=== PATIENT | female | born 1940 | race Caucasian/White ===

== ENCOUNTER 2017-02-12 05:04 | Emergency (ER) | payer MEDICARE, OTHER ==
[2017-02-12 06:00] LABS: ABSOLUTE EOSINOPHILS # (AUTO) 0.4 10^3/uL (0.0-0.6); ABSOLUTE LYMPHOCYTES (AUTO) 1.4 10^3/uL (0.5-4.7); ABSOLUTE MONOCYTES (AUTO) 0.5 10^3/uL (0.1-1.4); ABSOLUTE NEUT (AUTO) 3.3 10^3/uL (1.7-8.2); BASOPHILS % (AUTO) 0.8 % (0-2); EOSINOPHILS % (AUTO) 6.7 % (0-6); HEMATOCRIT 37.8 % (36.0-47.0); HEMOGLOBIN 12.5 g/dL (12.0-15.5); HGB HCT DIFFERENCE -0.3; MEAN CORPUSCULAR HEMOGLOBIN 31.2 pg (27.0-33.4); MEAN CORPUSCULAR HGB CONC 33.2 g/dL (32.0-36.0); MEAN CORPUSCULAR VOLUME 94 fl (80-97); MONOCYTES % (AUTO) 8.8 % (3-13); RED BLOOD COUNT 4.02 10^6/uL (3.72-5.28); RED CELL DISTRIBUTION WIDTH 13.7 % (11.5-14.0); SEGMENTED NEUTROPHILS % (AUTO) 58.7 % (42-78); WHITE BLOOD COUNT 5.6 10^3/uL (4.0-10.5)
[2017-02-12 06:14] LABS: ALANINE AMINOTRANSFERASE 31 U/L (9-52); ALBUMIN 3.9 g/dL (3.5-5.0); ALKALINE PHOSPHATASE 98 U/L (38-126); ANION GAP 13 (5-19); ASPARTATE AMINO TRANSFERASE 32 U/L (14-36); BILIRUBIN,DIRECT 0.1 mg/dL (0.0-0.4); BILIRUBIN,TOTAL 0.5 mg/dL (0.2-1.3); BLOOD UREA NITROGEN 24 mg/dL (7-20); CALCIUM 10.1 mg/dL (8.4-10.2); CARBON DIOXIDE 26 mmol/L (22-30); CHLORIDE 103 mmol/L (98-107); CREATININE RESULT 0.73 mg/dL (0.52-1.25); GLUCOSE 127 mg/dL (75-110); LIPASE 170.6 U/L (23-300); POTASSIUM 3.8 mmol/L (3.6-5.0); SODIUM 141.6 mmol/L (137-145); TOTAL PROTEIN 6.9 g/dL (6.3-8.2)
[2017-02-12 06:36] LABS: APPEARANCE,URINE SLIGHTLY-CLOUDY; BILIRUBIN,URINE NEGATIVE (NEGATIVE); GLUCOSE, URINE NEGATIVE (NEGATIVE); KETONES,URINE NEGATIVE (NEGATIVE); LEUKOCYTE ESTERASE,URINE LARGE (NEGATIVE); NITRITE,URINE NEGATIVE (NEGATIVE); PROTEIN,URINE NEGATIVE (NEGATIVE); URINE SPECIFIC GRAVITY 1.011; UROBILINOGEN,URINE NEGATIVE mg/dL (<2.0)
--- NOTE | 2017-02-12 06:38 | ER Document Report ---
ED General - General Chief Complaint: Abdominal Pain Stated Complaint: ABDOMINAL PAIN Mode of Arrival: Medic Information source: Patient Notes: 76 yr old female with hx of constipation presents with complaitns of abd pain. pt notes that it is in the lower abd. Pt denies any fevers or chills, denies any vomtiing, pt had mild nausea. Pts family notes after she had a bm movement here most of her pain has resolved. TRAVEL OUTSIDE OF THE [place] IN LAST 30 DAYS: No - HPI Onset: Just prior to arrival Onset/Duration: Sudden Quality of pain: Cramping Severity: Mild Pain Level: 1 Associated symptoms: Other Exacerbated by: Denies Relieved by: Denies Similar symptoms previously: Yes Recently seen / treated by doctor: Yes - Related Data Allergies/Adverse Reactions: clarithromycin [Clarithromycin] Allergy (Unknown, Verified 06/01/13 14:40) unsure of reaction clindamycin HCl [From Cleocin] Allergy (Unknown, Verified 06/01/13 14:40) pt states just can't take doxycycline monohydrate [From Vibramycin] Allergy (Unknown, Verified 06/01/13 14 :40) unsure of reaction Sulfa (Sulfonamide Antibiotics) Allergy (Unknown, Verified 05/07/11 16:47) brimonidine tartrate [From Alphagan] Allergy (Verified 01/16/13 11:31) Red eyes furosemide [From Lasix] Allergy (Verified 01/16/13 11:31) breaks down timolol [Timolol] Allergy (Verified 01/16/13 11:31) lowers heart rate erythromycin base [Erythromycin Base] Adverse Reaction (Severe, Verified 14:40) GI upset Penicillins Adverse Reaction (Severe, Verified 06/01/13 14:40) dry mouth,vomiting doxycycline [Doxycycline] Adverse Reaction (Intermediate, Verified 06/01/13 14: 40) Nausea Past Medical History - Social History Smoking Status: Former Smoker Cigarette use (# per day): No Chew tobacco use (# tins/day): No Smoking Education Provided: No Frequency of alcohol use: None Drug Abuse: None Family History: Reviewed & Not Pertinent - Past Medical History Cardiac Medical History: Reports: Hx Heart Attack - unsure when, Hx Hypertension - age 63 Denies: Hx Coronary Artery Disease Pulmonary Medical History: Reports: Hx Bronchitis, Hx Pneumonia - 15 yrs ago Denies: Hx Asthma, Hx COPD Neurological Medical History: Denies: Hx Cerebrovascular Accident, Hx Seizures GI Medical History: Denies: Hx Hepatitis, Hx Hiatal Hernia, Hx Ulcer Musculoskeltal Medical History: Denies Hx Arthritis Psychiatric Medical History: Reports: Hx Depression Infectious Medical History: Denies: Hx Hepatitis Past Surgical History: Reports: Hx Breast Surgery - cyst removed benign, Hx Cholecystectomy, Hx Hysterectomy, Hx Orthopedic Surgery - right ankle and right hip. Denies: Hx Mastectomy, Hx Open Heart Surgery, Hx Pacemaker - Immunizations Hx Diphtheria, Pertussis, Tetanus Vaccination: No - ~8yrs ago Hx Pneumococcal Vaccination: 10/25/09 Review of Systems - Review of Systems Notes: REVIEW OF SYSTEMS: CONSTITUTIONAL : Denies fever, chills, or sweats. Denies recent illness. EENT: Denies eye, ear, throat, or mouth pain or symptoms. Denies nasal or sinus congestion or discharge. Denies throat, tongue, or mouth swelling or difficulty swallowing. CARDIOVASCULAR: Denies chest pain. Denies palpitations or racing or irregular heart beat. Denies ankle edema. RESPIRATORY: Denies cough, cold, or chest congestion. Denies shortness of breath, difficulty breathing, or wheezing. GASTROINTESTINAL: abd pain, constipation GENITOURINARY: Denies difficulty urinating, painful urination, burning, frequency, blood in urine, or discharge. FEMALE GENITOURINARY: Denies vaginal bleeding, heavy or abnormal periods, irregular periods. Denies vaginal discharge or odor. MUSCULOSKELETAL: Denies back or neck pain or stiffness. Denies joint pain or swelling. SKIN: Denies rash, lesions or sores. HEMATOLOGIC : Denies easy bruising or bleeding. LYMPHATIC: Denies swollen, enlarged glands. NEUROLOGICAL: Denies confusion or altered mental status. Denies passing out or loss of consciousness. Denies dizziness or lightheadedness. Denies headache. Denies weakness or paralysis or loss of use of either side. Denies problems with gait or speech. Denies sensory loss, numbness, or tingling. Denies seizures. PSYCHIATRIC: Denies anxiety or stress. Denies depression, suicidal ideation, or homicidal ideation. ALL OTHER SYSTEMS REVIEWED AND NEGATIVE. Dictation was performed using [employer] voice recognition software PHYSICAL EXAMINATION: GENERAL: Well-appearing, well-nourished and in no acute distress. HEAD: Atraumatic, normocephalic. EYES: Pupils equal round and reactive to light, extraocular movements intact, conjunctiva are normal. ENT: Nares patent, oropharynx clear without exudates. Moist mucous membranes. NECK: Normal range of motion, supple without lymphadenopathy LUNGS: Breath sounds clear to auscultation bilaterally and equal. No wheezes rales or rhonchi. HEART: Regular rate and rhythm without murmurs ABDOMEN: Soft, nontender, nondistended abdomen. No guarding, no rebound. No masses appreciated. Female : deferred Musculoskeletal: Normal range of motion, no pitting or edema. No cyanosis. NEUROLOGICAL: Cranial nerves grossly intact. Normal speech, normal gait. Normal sensory, motor exams PSYCH: Normal mood, normal affect. SKIN: Warm, Dry, normal turgor, no rashes or lesions noted. Course - Re-evaluation Re-evalutation: 02/12/17 06:38 Physical examination noted no significant abnormality, patient looks well patient has improved after bowel movement, CBC CMP no no significant abnormalities. Acute abdominal series and urinalysis are still pending at this time I do not expect any life-threatening issues 02/12/17 08:06 Acute abdominal series notes no significant abnormality, patient is drinking with no difficulty. She does have leukoesterases noted, I will treat her for a UTI otherwise she is well-appearing in no distress After performing a Medical Screening Examination, I estimate there is LOW risk for ACUTE APPENDICITIS, BOWEL OBSTRUCTION, ACUTE CHOLECYSTITIS, PERFORATED DIVERTICULITIS, INCARCERATED HERNIA, PANCREATITIS, PELVIC INFLAMMATORY DISEASE, PERFORATED ULCER, ECTOPIC , or TUBO-OVARIAN ABSCESS, thus I consider the discharge disposition reasonable. Also, there is no evidence or peritonitis , sepsis, or toxicity. I have reevaluated this patient multiple times and no significant life threatening changes are noted. The patient and I have discussed the diagnosis and risks, and we agree with discharging home with close follow-up with the understanding that symptoms and presentations can change. We also discussed returning to the Emergency Department immediately if new or worsening symptoms occur. We have discussed the symptoms which are most concerning (e.g., bloody stool, fever, changing or worsening pain, vomiting) that necessitate immediate return. - Laboratory Result Diagrams: 02/12/17 05:34 02/12/17 05:34 Laboratory results interpreted by me: 02/12/17 02/12/17 02/12/17 05:34 05:34 06:04 Eosinophils % 6.7 H BUN 24 H Glucose 127 H Ur Leukocyte Esterase LARGE H - Diagnostic Test Radiology reviewed: Image reviewed, Reports reviewed Discharge - Discharge Clinical Impression: Abdominal pain Qualifiers: Abdominal location: generalized Qualified Code(s): R10.84 - Generalized abdominal pain UTI (urinary tract infection) Qualifiers: Urinary tract infection type: acute cystitis Hematuria presence: without hematuria Qualified Code(s): N30.00 - Acute cystitis without hematuria Constipation Qualifiers: Constipation type: unspecified constipation type Qualified Code(s): K59.00 - Constipation, unspecified Condition: Stable Disposition: HOME, SELF-CARE Instructions: Abdominal Pain ([facility]), Urinary Tract Infection ([facility]) Prescriptions: Cephalexin Monohydrate [Keflex 500 mg Capsule] 500 mg PO BID #20 capsule Referrals: ANTHONY AGUILAR MD [Primary Care Provider] - Follow up tomorrow
[2017-02-12 08:19] VITALS: BP 136/53
== END 2017-02-12 08:19 | disposition home or self-care (01) ==
LOC: ER 05:04
DX: R10.84 Generalized abdominal pain (principal); N30.00 Acute cystitis without hematuria; K59.00 Constipation, unspecified; R11.0 Nausea; I10 Essential (primary) hypertension; Z88.3 Allergy status to other anti-infective agents; Z88.2 Allergy status to sulfonamides; Z88.0 Allergy status to penicillin; I25.2 Old myocardial infarction; Z90.49 Acquired absence of other specified parts of digestive tract; Z90.710 Acquired absence of both cervix and uterus
CPT/HCPCS: 36415; 74022; 80053; 81001; 83690; 85025; 99284

== ENCOUNTER 2018-01-07 10:04 | Emergency (ER) | payer MEDICARE, OTHER ==
--- NOTE | 2018-01-07 10:30 | ER Document Report ---
HPI - HPI Pain Level: 1 Notes: Patient is a 77-year-old female who presents to the ED complaining of right foot and right ankle pain status post injury yesterday afternoon. Patient states that she stepped out of her car and slipped on a "mud hole." Patient states that she did continue to run her errands and has been ambulatory since then, but does have pain associated and is limping. Patient did have a postop shoe at home which she has been using as well. Patient states that the pain does not radiate. She has noticed some swelling into her dorsal foot. Patient states that she has had a previous surgery to that foot in the past. Patient states that she did not hurt any other part of her body is otherwise feeling well. Denies any headache, fever, head injury, LOC, neck pain, URI, sore throat , chest pain, palpitations, syncope, cough, shortness of breath, wheeze, dyspnea , abdominal pain, nausea/vomiting/diarrhea, urinary retention, dysuria, hematuria, loss of control of bowel or bladder, numbness/tingling, saddle anesthesia, muscle paralysis/weakness, or rash. - ROS Systems Reviewed and Negative: Yes All other systems reviewed and negative - REPRODUCTIVE Reproductive: DENIES: : Past Medical History - Social History Smoking Status: Never Smoker Family History: Reviewed & Not Pertinent - Past Medical History Cardiac Medical History: Reports: Hx Heart Attack - unsure when, Hx Hypertension - age 63 Denies: Hx Coronary Artery Disease Pulmonary Medical History: Reports: Hx Bronchitis, Hx Pneumonia - 15 yrs ago Denies: Hx Asthma, Hx COPD Neurological Medical History: Denies: Hx Cerebrovascular Accident, Hx Seizures GI Medical History: Denies: Hx Hepatitis, Hx Hiatal Hernia, Hx Ulcer Musculoskeltal Medical History: Denies Hx Arthritis Psychiatric Medical History: Reports: Hx Depression Infectious Medical History: Denies: Hx Hepatitis Past Surgical History: Reports: Hx Breast Surgery - cyst removed benign, Hx Cholecystectomy, Hx Hysterectomy, Hx Orthopedic Surgery - right ankle and right hip. Denies: Hx Mastectomy, Hx Open Heart Surgery, Hx Pacemaker - Immunizations Hx Diphtheria, Pertussis, Tetanus Vaccination: No - ~8yrs ago Hx Pneumococcal Vaccination: 10/25/09 Vertical Provider Document - CONSTITUTIONAL Agree With Documented VS: Yes Notes: PHYSICAL EXAMINATION: GENERAL: Well-appearing, well-nourished and in no acute distress. A&Ox4. Answers questions appropriately. LUNGS: Breath sounds clear to auscultation bilaterally and equal. No wheezes rales or rhonchi. HEART: Regular rate and rhythm without murmurs, rubs, gallops. Musculoskeletal: Rt ankle/foot: LROM to passive/active. Strength 4+/5. No deficits noted. + swelling to the dorsal foot noted. + tenderness to the ankle b/l and to the distal foot to palp. N/V intact distal. Achilles intact. Back: FROM to passive/active. Strength 5+/5. No vertebral point tenderness, stepoffs, or deformities. No other bony tenderness, erythema, swelling, or ecchymosis. SLR negative b/l. No foot drop Extremities: No cyanosis, clubbing, or edema b/l. Peripheral pulses 2+. Capillary refill less than 2 seconds. NEUROLOGICAL: Normal speech, ataxic gait. Normal sensory, motor exams. Reflexes 2+ b/l. PSYCH: Normal mood, normal affect. SKIN: Warm, Dry, normal turgor, no rashes or lesions noted. - INFECTION CONTROL TRAVEL OUTSIDE OF THE [place] IN LAST 30 DAYS: No - RESPIRATORY O2 Sat by Pulse Oximetry: 99 Course - Re-evaluation Re-evalutation: 01/07/18 12:14 Patient is an afebrile, well-hydrated, 77-year-old female who presents to the ED with right ankle and foot pain, suspect sprain versus strain. Vitals are stable. PE is otherwise unremarkable for any neurovascular compromise, obvious tendon/ligament rupture, obvious fracture/dislocation, septic joint. X-ray was unremarkable for any acute pathology of the ankle and the foot. Ankle stirrup placed. Pt declined crutches as she has a walker at home. Declined any medicine for pain today. Recommend conservative measures for symptoms. Recheck with your PCM in 3-5 days. Consider consult orthopedics/physical therapy. Return to the ED with any worsening/concerning symptoms otherwise as reviewed discharge. Patient is in agreement. - Vital Signs Vital signs: Temp Pulse Resp BP Pulse Ox 97.9 F 65 16 152/62 H 99 01/07/18 10:09 01/07/18 10:09 01/07/18 10:09 01/07/18 10:01/07/18 10:09 Discharge - Discharge Clinical Impression: Right foot pain Right ankle pain Qualifiers: Chronicity: acute Qualified Code(s): M25.571 - Pain in right ankle and joints of right foot Condition: Stable Disposition: HOME, SELF-CARE Instructions: Ice & Elevation ([facility]), Ankle Stirrup Splint ([facility]) Additional Instructions: Rest, Ice, Compression, Elevation Use crutches/splint/sling as directed Tylenol/ibuprofen as needed Light stretches daily Strength exercises as able Moist heat and massage may help F/u with your PCP in 3-5 days for a recheck Consider consult(s) with Orthopedics/physical therapy for ongoing/worsening symptoms Return to the ED with any worsening symptoms and/or development of fever, headache, chest pain, palpitations, syncope, shortness of breath, trouble breathing, abdominal pain, n/v/d, muscle weakness/paralysis, numbness/tingling, swelling, redness, or other worsening symptoms that are concerning to you. Forms: Elevated Blood Pressure Referrals: [facility] [Provider Group] - Follow up as needed
--- NOTE | 2018-01-07 12:03 | RADIOLOGY REPORT (SQ) ---
EXAM DESCRIPTION: FOOT RIGHT COMPLETE COMPLETED DATE/TIME: 01/07/2018 11:33 am REASON FOR STUDY: ankle/foot pain s/p injury COMPARISON: None. NUMBER OF VIEWS: Three views. TECHNIQUE: AP, lateral and oblique radiographic images acquired of the right foot. LIMITATIONS: Please note: There is a demographics mismatch warning FINDINGS: MINERALIZATION: Osteopenia. BONES: No acute fracture or dislocation. No worrisome bone lesions. JOINTS: No effusions. SOFT TISSUES: No soft tissue swelling. No foreign body. OTHER: Hardware is present in the distal fibula and the medial malleolus. IMPRESSION: NEGATIVE STUDY OF THE RIGHT FOOT. NO RADIOGRAPHIC EVIDENCE OF ACUTE INJURY. TECHNICAL DOCUMENTATION: JOB ID: [id number] [employer]- All Rights Reserved Reading location - IP/workstation name: [email or web address]
--- NOTE | 2018-01-07 12:12 | RADIOLOGY REPORT (SQ) ---
EXAM DESCRIPTION: ANKLE RIGHT COMPLETE COMPLETED DATE/TIME: 01/07/2018 11:33 am REASON FOR STUDY: ankle/foot pain s/p injury COMPARISON: 02/14/2007 NUMBER OF VIEWS: Three views. TECHNIQUE: AP, lateral, and oblique radiographic images acquired of the right ankle. LIMITATIONS: Please note: There is a demographics mismatch warning. FINDINGS: MINERALIZATION: Normal. BONES: No acute fracture or dislocation. There is along compression plate on the distal fibula and 2 cannulated screws through the medial malleolus. JOINTS: No effusions. SOFT TISSUES: No soft tissue swelling. No foreign body. OTHER: No other significant finding. IMPRESSION: NEGATIVE STUDY OF THE RIGHT ANKLE. NO RADIOGRAPHIC EVIDENCE OF ACUTE INJURY. TECHNICAL DOCUMENTATION: JOB ID: [id number] [employer]- All Rights Reserved Reading location - IP/workstation name: [email or web address]
[2018-01-07 12:35] VITALS: BP 140/48
== END 2018-01-07 12:42 | disposition home or self-care (01) ==
LOC: ER 10:04
DX: M79.671 Pain in right foot (principal); M25.571 Pain in right ankle and joints of right foot; W01.0XXA Fall on same level from slipping, tripping and stumbling without subsequent striking against object, initial encounter; M79.89 Other specified soft tissue disorders; Z98.890 Other specified postprocedural states; I25.2 Old myocardial infarction; I10 Essential (primary) hypertension; Z90.710 Acquired absence of both cervix and uterus; Z90.49 Acquired absence of other specified parts of digestive tract
CPT/HCPCS: 99283; 73610; 73630; L1902

== ENCOUNTER 2018-03-07 18:52 | Emergency (ER) | payer MEDICARE, OTHER ==
[2018-03-07] MEDS ORDERED: ONDANSETRON HCL INJ/PF 4 MG/2 ML SDV IV ONE (20:08)
[2018-03-07] MEDS ORDERED: NORMAL SALINE 1000 ML 1,000 ML IV ONE (20:22)
--- NOTE | 2018-03-07 20:27 | ER Document Report ---
ED General - General Chief Complaint: Nausea Stated Complaint: ABDOMINAL PAIN Time Seen by Provider: 03/07/18 19:37 Notes: Patient is a 78 year old female with medical history as recorded with a surgical history of a cholecystectomy and a hysterectomy who presents with 2 episodes of nausea and vomiting today. The patient reports that she attempted to eat some chicken and pastry tonight for dinner but immediately vomited after eating. She notes that she has been able to tolerate some fluids since that time without difficulty. At time of presentation she denies any ongoing abdominal pain, nausea and her main complaint is chronic right knee pain. She states that this was not the reason she called EMS but given that she no longer has any symptoms for which she originally contacted them she would prefer that her right knee be addressed while she is here in the emergency department. She states that she fell approximately 1 month ago sustaining bruising and swelling to the right knee. She states that she saw her doctor and had x-rays of the area and was informed that there were no fractures or other obvious injuries. She is scheduled to follow-up with an orthopedic surgeon regarding this ongoing pain. She does note that she continues to walk on the area but that there is an associated dull, constant, throbbing pain. TRAVEL OUTSIDE OF THE [place] IN LAST 30 DAYS: No - Related Data Allergies/Adverse Reactions: clarithromycin [Clarithromycin] Allergy (Unknown, Verified 01/07/18 10:06) unsure of reaction clindamycin HCl [From Cleocin] Allergy (Unknown, Verified 01/07/18 10:06) pt states just can't take doxycycline monohydrate [From Vibramycin] Allergy (Unknown, Verified 01/07/18 10 :06) unsure of reaction Sulfa (Sulfonamide Antibiotics) Allergy (Unknown, Verified 01/07/18 10:06) brimonidine tartrate [From Alphagan] Allergy (Verified 01/07/18 10:06) Red eyes furosemide [From Lasix] Allergy (Verified 01/07/18 10:06) breaks down NSAIDS (Non-Steroidal Anti-Inflamma Allergy (Verified 01/07/18 10:06) nystatin Allergy (Verified 01/07/18 10:06) timolol [Timolol] Allergy (Verified 01/07/18 10:06) lowers heart rate trimethoprim Allergy (Verified 01/07/18 10:06) erythromycin base [Erythromycin Base] Adverse Reaction (Severe, Verified 10:06) GI upset Penicillins Adverse Reaction (Severe, Verified 01/07/18 10:06) dry mouth,vomiting doxycycline [Doxycycline] Adverse Reaction (Intermediate, Verified 01/07/18 10: 06) Nausea Past Medical History - General Information source: Patient, Relative - Social History Smoking Status: Never Smoker Chew tobacco use (# tins/day): No Frequency of alcohol use: None Drug Abuse: None Lives with: Alone Family History: Reviewed & Not Pertinent Patient has suicidal ideation: No Patient has homicidal ideation: No - Past Medical History Cardiac Medical History: Reports: Hx Heart Attack - unsure when, Hx Hypercholesterolemia, Hx Hypertension - age 63 Denies: Hx Coronary Artery Disease Pulmonary Medical History: Reports: Hx Bronchitis, Hx Pneumonia - 15 yrs ago Denies: Hx Asthma, Hx COPD Neurological Medical History: Denies: Hx Cerebrovascular Accident, Hx Seizures Renal/ Medical History: Denies: Hx Peritoneal Dialysis GI Medical History: Denies: Hx Hepatitis, Hx Hiatal Hernia, Hx Ulcer Musculoskeltal Medical History: Denies Hx Arthritis Psychiatric Medical History: Reports: Hx Depression Infectious Medical History: Denies: Hx Hepatitis Past Surgical History: Reports: Hx Appendectomy, Hx Breast Surgery - cyst removed benign, Hx Cholecystectomy, Hx Hysterectomy, Hx Orthopedic Surgery - right ankle and right hip. Denies: Hx Mastectomy, Hx Open Heart Surgery, Hx Pacemaker - Immunizations Hx Diphtheria, Pertussis, Tetanus Vaccination: No - ~8yrs ago Hx Pneumococcal Vaccination: 10/25/09 Review of Systems - Review of Systems Notes: Constitutional: Negative for fever. HENT: Negative for sore throat. Eyes: Negative for visual changes. Cardiovascular: Negative for chest pain. Respiratory: Negative for shortness of breath. Gastrointestinal: Positive for abdominal pain and vomiting now resolved Genitourinary: Negative for dysuria. Musculoskeletal: Positive for right knee pain Skin: Negative for rash. Neurological: Negative for headaches, weakness or numbness. 10 point ROS negative except as marked above and in HPI. Physical Exam - Vital signs Vitals: Temp Pulse Resp BP Pulse Ox 97.7 F 64 18 134/48 H 98 03/07/18 19:06 03/07/18 19:06 03/07/18 19:06 03/07/18 19:06 03/07/18 19:06 Interpretation: Normal Notes: PHYSICAL EXAMINATION: GENERAL: Well-appearing, well-nourished and in no acute distress. HEAD: Atraumatic, normocephalic. EYES: Pupils equal round and reactive to light, extraocular movements intact, sclera anicteric, conjunctiva are normal. ENT: nares patent, oropharynx clear without exudates. Moist mucous membranes. NECK: Normal range of motion, supple without lymphadenopathy LUNGS: Breath sounds clear to auscultation bilaterally and equal. No wheezes rales or rhonchi. HEART: Regular rate and rhythm without murmurs ABDOMEN: Soft, nontender, normoactive bowel sounds. No guarding, no rebound. No masses appreciated. EXTREMITIES: Normal range of motion, mild swelling noted to the right knee. Trace ecchymosis over the medial aspect of the knee. No cyanosis. NEUROLOGICAL: No focal neurological deficits. Moves all extremities spontaneously and on command. PSYCH: Normal mood, normal affect. SKIN: Warm, Dry, normal turgor, no rashes or lesions noted. Course - Re-evaluation Re-evalutation: 03/07/18 20:24 Patient presents with generalized abdominal pain and vomiting on 2 separate occasions today although currently she is abdominal pain-free without any further nausea or vomiting. Abdominal exam without any localized tenderness, rebound or guarding. Will obtain laboratory assessment and then reassess the patient. If this is unremarkable plan for discharge home with return precautions palpitations patient is also complaining of chronic right knee pain that has been present for the past 1 month is not to receive her ER visit today. There is some mild swelling to the right knee but she is able to perform range of motion. X-rays without any acute fracture dislocation. I have encouraged outpatient follow-up regarding this issue. 03/07/18 22:24 Labs do show an apparent urinary tract infection which would account for the patient's nausea and vomiting. Repeat abdominal exam does not show any abdominal tenderness. The patient has tolerated oral intake without difficulty. She is requesting to go home. She was started on cephalexin for the next 5 days. At this time will discharge with return precautions and follow -up recommendations. Verbal discharge instructions given a the bedside and opportunity for questions given. Medication warnings reviewed. Patient is in agreement with this plan and has verbalized understanding of return precautions and the need for primary care follow-up in the next 24-72 hours. - Vital Signs Vital signs: Temp Pulse Resp BP Pulse Ox 98 F 64 18 149/63 H 97 03/07/18 23:03 03/07/18 23:03 03/07/18 23:03 03/07/18 23:03 03/07/18 23:03 - Laboratory Result Diagrams: 03/07/18 20:40 03/07/18 20:40 Laboratory results interpreted by me: 03/07/18 03/07/18 20:40 21:20 Potassium 3.5 L Glucose 128 H Ur Leukocyte Esterase LARGE H Discharge - Discharge Clinical Impression: Chronic pain of right knee Nausea and vomiting Qualifiers: Vomiting type: unspecified Vomiting Intractability: non-intractable Qualified Code(s): R11.2 - Nausea with vomiting, unspecified Urinary tract infection Qualifiers: Urinary tract infection type: acute cystitis Hematuria presence: without hematuria Qualified Code(s): N30.00 - Acute cystitis without hematuria Condition: Stable Disposition: HOME, SELF-CARE Additional Instructions: Your urine shows findings consistent with a urinary tract infection. Please take all the antibiotics as directed even if your symptoms have improved. Please follow-up with your primary care physician as needed. Return to emergency room if you develop fever >101F, persistent vomiting, become lethargic , have severe pain in your sides, or any other symptoms that are concerning to you. Prescriptions: Cephalexin Monohydrate [Keflex 500 mg Capsule] 500 mg PO Q6H 5 Days capsule Referrals: ANHTONY AGUILAR MD [Primary Care Provider] - Follow up tomorrow
--- NOTE | 2018-03-07 20:35 | RADIOLOGY REPORT (SQ) ---
EXAM DESCRIPTION: KNEE RIGHT 4 VIEWS COMPLETED DATE/TIME: 03/07/2018 7:42 pm REASON FOR STUDY: fall COMPARISON: None. NUMBER OF VIEWS: Four views right knee. LIMITATIONS: None. 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 Osteopenic. No fracture or wo rrisome bone lesion. Small joint effusion is likely. OTHER: No other significant finding. IMPRESSION: No fracture. Findings as above. TECHNICAL DOCUMENTATION: JOB ID: [id number] Reading location - IP/workstation name: [email or web address]
[2018-03-07 20:51] LABS: ABSOLUTE EOSINOPHILS # (AUTO) 0.3 10^3/uL (0.0-0.6); ABSOLUTE LYMPHOCYTES (AUTO) 1.3 10^3/uL (0.5-4.7); ABSOLUTE MONOCYTES (AUTO) 0.6 10^3/uL (0.1-1.4); ABSOLUTE NEUT (AUTO) 3.4 10^3/uL (1.7-8.2); BASOPHILS % (AUTO) 0.4 % (0-2); EOSINOPHILS % (AUTO) 4.9 % (0-6); HEMATOCRIT 40.2 % (36.0-47.0); HEMOGLOBIN 13.5 g/dL (12.0-15.5); MEAN CORPUSCULAR HEMOGLOBIN 31.1 pg (27.0-33.4); MEAN CORPUSCULAR HGB CONC 33.4 g/dL (32.0-36.0); MEAN CORPUSCULAR VOLUME 93 fl (80-97); MONOCYTES % (AUTO) 11.5 % (3-13); PLATELET COUNT 225 10^3/uL (150-450); RED BLOOD COUNT 4.33 10^6/uL (3.72-5.28); RED CELL DISTRIBUTION WIDTH 13.7 % (11.5-14.0); SEGMENTED NEUTROPHILS % (AUTO) 60.2 % (42-78); TOTAL CELLS COUNTED % (AUTO) 100 %; WHITE BLOOD COUNT 5.6 10^3/uL (4.0-10.5)
[2018-03-07 21:15] LABS: ALANINE AMINOTRANSFERASE 25 U/L (9-52); ALKALINE PHOSPHATASE 104 U/L (38-126); ANION GAP 14 (5-19); ASPARTATE AMINO TRANSFERASE 31 U/L (14-36); BILIRUBIN,DIRECT 0.3 mg/dL (0.0-0.4); BILIRUBIN,TOTAL 0.3 mg/dL (0.2-1.3); BLOOD UREA NITROGEN 16 mg/dL (7-20); CALCIUM 9.6 mg/dL (8.4-10.2); CARBON DIOXIDE 29 mmol/L (22-30); CHLORIDE 101 mmol/L (98-107); GLUCOSE 128 mg/dL (75-110); LIPASE 129.4 U/L (23-300); POTASSIUM 3.5 mmol/L (3.6-5.0); SODIUM 144.1 mmol/L (137-145); TOTAL PROTEIN 7.3 g/dL (6.3-8.2)
[2018-03-07 21:45] LABS: APPEARANCE,URINE CLEAR; BILIRUBIN,URINE NEGATIVE (NEGATIVE); COLOR,URINE STRAW; GLUCOSE, URINE NEGATIVE (NEGATIVE); KETONES,URINE NEGATIVE (NEGATIVE); LEUKOCYTE ESTERASE,URINE LARGE (NEGATIVE); NITRITE,URINE NEGATIVE (NEGATIVE); PROTEIN,URINE NEGATIVE (NEGATIVE); URINE SPECIFIC GRAVITY 1.005; UROBILINOGEN,URINE NEGATIVE mg/dL (<2.0)
[2018-03-07 23:04] VITALS: BP 149/63
== END 2018-03-07 23:04 | disposition home or self-care (01) ==
LOC: ER 18:52
DX: N30.00 Acute cystitis without hematuria (principal); R11.2 Nausea with vomiting, unspecified; R10.84 Generalized abdominal pain; G89.29 Other chronic pain; M25.561 Pain in right knee; Z87.828 Personal history of other (healed) physical injury and trauma; I10 Essential (primary) hypertension; I25.2 Old myocardial infarction; Z88.1 Allergy status to other antibiotic agents; Z90.49 Acquired absence of other specified parts of digestive tract; Z90.710 Acquired absence of both cervix and uterus; Z88.2 Allergy status to sulfonamides; Z88.8 Allergy status to other drugs, medicaments and biological substances
CPT/HCPCS: 99284; 36415; 87086; 83690; 85025; 87088; 80053; 81001; 73564; J2405; J7030

== ENCOUNTER 2018-06-27 14:47 | Emergency (ER) | payer MEDICARE, OTHER ==
--- NOTE | 2018-06-27 15:17 | ER Document Report ---
ED General - General Chief Complaint: Swelling of Tongue Stated Complaint: TOUNGUE SWELLING Time Seen by Provider: 06/27/18 15:14 TRAVEL OUTSIDE OF THE [place] IN LAST 30 DAYS: No - HPI Patient complains to provider of: tongue swelling Onset: Other - This is a 78-year-old female presents for evaluation of unilateral tongue swelling which began today while she was sitting watching television. She has never had any reaction like this in the past, she has had allergic reactions to antibiotics. There was no prodrome no preceding event. She does take lisinopril. - Related Data Allergies/Adverse Reactions: clarithromycin [Clarithromycin] Allergy (Unknown, Verified 06/27/18 15:14) unsure of reaction clindamycin HCl [From Cleocin] Allergy (Unknown, Verified 06/27/18 15:14) pt states just can't take doxycycline monohydrate [From Vibramycin] Allergy (Unknown, Verified 06/27/18 15 :14) unsure of reaction Sulfa (Sulfonamide Antibiotics) Allergy (Unknown, Verified 06/27/18 15:14) brimonidine tartrate [From Alphagan] Allergy (Verified 06/27/18 15:14) Red eyes furosemide [From Lasix] Allergy (Verified 06/27/18 15:14) breaks down NSAIDS (Non-Steroidal Anti-Inflamma Allergy (Verified 06/27/18 15:14) nystatin Allergy (Verified 06/27/18 15:14) timolol [Timolol] Allergy (Verified 06/27/18 15:14) lowers heart rate trimethoprim Allergy (Verified 06/27/18 15:14) erythromycin base [Erythromycin Base] Adverse Reaction (Severe, Verified 15:14) GI upset Penicillins Adverse Reaction (Severe, Verified 06/27/18 15:14) dry mouth,vomiting doxycycline [Doxycycline] Adverse Reaction (Intermediate, Verified 06/27/18 15: 14) Nausea Past Medical History - General Information source: Patient - Social History Smoking Status: Current Every Day Smoker Family History: Reviewed & Not Pertinent - Past Medical History Cardiac Medical History: Reports: Hx Heart Attack - unsure when, Hx Hypercholesterolemia, Hx Hypertension - age 63 Denies: Hx Coronary Artery Disease Pulmonary Medical History: Reports: Hx Bronchitis, Hx Pneumonia - 15 yrs ago Denies: Hx Asthma, Hx COPD Neurological Medical History: Denies: Hx Cerebrovascular Accident, Hx Seizures Renal/ Medical History: Denies: Hx Peritoneal Dialysis GI Medical History: Denies: Hx Hepatitis, Hx Hiatal Hernia, Hx Ulcer Musculoskeletal Medical History: Denies Hx Arthritis Psychiatric Medical History: Reports: Hx Depression Infectious Medical History: Denies: Hx Hepatitis Past Surgical History: Reports: Hx Appendectomy, Hx Breast Surgery - cyst removed benign, Hx Cholecystectomy, Hx Hysterectomy, Hx Orthopedic Surgery - right ankle and right hip. Denies: Hx Mastectomy, Hx Open Heart Surgery, Hx Pacemaker - Immunizations Hx Diphtheria, Pertussis, Tetanus Vaccination: No - ~8yrs ago Hx Pneumococcal Vaccination: 10/25/09 Review of Systems - Review of Systems -: Yes All other systems reviewed and negative Physical Exam - Vital signs Vitals: Resp BP Pulse Ox 25 H 146/54 H 99 06/27/18 15:10 06/27/18 15:10 06/27/18 15:10 - General General appearance: Appears well In distress: None - HEENT Head: Normocephalic Eyes: Normal Conjunctiva: Normal Cornea: Normal Extraocular movements intact: Yes Eyelashes: Normal Pupils: PERRL - Respiratory Respiratory status: No respiratory distress Chest status: Nontender Breath sounds: Normal Chest palpation: Normal - Cardiovascular Rhythm: Regular Heart sounds: Normal auscultation Murmur: No - Abdominal Inspection: Normal Distension: No distension Tenderness: Nontender - Back Back: Normal - Extremities General upper extremity: Normal inspection, Nontender, Normal strength, Normal temperature General lower extremity: Normal inspection, Nontender, Normal strength, Normal temperature - Neurological Neuro grossly intact: Yes Cognition: Normal Orientation: AAOx4 Rolf Coma Scale Eye Opening: Spontaneous [place] Coma Scale Verbal: Oriented Rolf Coma Scale Motor: Obeys Commands Rolf Coma Scale Total: 15 Speech: Normal Cranial nerves: Normal Motor strength normal: LUE, RUE, LLE, RLE - Psychological Associated symptoms: Normal affect Course - Re-evaluation Re-evalutation: 06/27/18 18:45 78-year-old female that presents for evaluation of unilateral tongue swelling in the setting of having been on lisinopril previously. She does demonstrate what appears to be potential swelling consistent with angioedema or possibly an injury to the tongue having abated. She does have 2 partial plates, they may be irritating her tongue along the lateral aspect. Given that there is a concern that this is factory representative of angioedema will plan for reassessment frequently. Initial reassessment for 90 minutes every 15 minutes patient does not demonstrate any progression and swelling of the tongue. For the next 90 minutes assessed the patient every 20 minutes for any progression of tongue swelling, the tongue swelling improved steadily without complete resolution. The patient had no sense of stridor, no wheezing, no difficulty breathing chest pain shortness of breath or other symptoms. Following this observation. The patient is deemed appropriate for discharge home. Patient to be discharged home with instructions to stop taking lisinopril. She has been given a prescription for hydrochlorothiazide as it was a combination medication for her. Given strict return precautions related any worsening swelling. - Vital Signs Vital signs: Temp Pulse Resp BP Pulse Ox 17 129/64 H 98 06/27/18 18:01 06/27/18 18:01 06/27/18 18:01 - Laboratory Result Diagrams: 06/27/18 15:04 06/27/18 15:04 Laboratory results interpreted by me: 06/27/18 06/27/18 15:04 15:04 RDW 14.1 H Glucose 132 H Discharge - Discharge Clinical Impression: Tongue swelling Condition: Good Disposition: HOME, SELF-CARE Instructions: Angioedema ([facility]) Additional Instructions: You were seen today in the emergency department for the swelling in your tongue. It is likely that this is a result of the medicine you are taking called lisinopril. Do not take this medicine. Use the prescribed hydrochlorothiazide and throw away your lisinopril. Do not take lisinopril any further. Use the new prescription for hydrochlorothiazide prescribed to you. Prescriptions: Hydrochlorothiazide 25 mg PO DAILY #20 tablet Referrals: ANTHONY AGUILAR MD [Primary Care Provider] - Follow up as needed
[2018-06-27 15:40] LABS: ABSOLUTE EOSINOPHILS # (AUTO) 0.2 10^3/uL (0.0-0.6); ABSOLUTE LYMPHOCYTES (AUTO) 1.9 10^3/uL (0.5-4.7); ABSOLUTE MONOCYTES (AUTO) 0.6 10^3/uL (0.1-1.4); ABSOLUTE NEUT (AUTO) 2.2 10^3/uL (1.7-8.2); BASOPHILS % (AUTO) 0.6 % (0-2); EOSINOPHILS % (AUTO) 4.4 % (0-6); HEMATOCRIT 38.2 % (36.0-47.0); LYMPHOCYTES % (AUTO) 37.7 % (13-45); MEAN CORPUSCULAR HEMOGLOBIN 31.9 pg (27.0-33.4); MEAN CORPUSCULAR VOLUME 94 fl (80-97); MONOCYTES % (AUTO) 11.7 % (3-13); PLATELET COUNT 238 10^3/uL (150-450); RED BLOOD COUNT 4.08 10^6/uL (3.72-5.28); RED CELL DISTRIBUTION WIDTH 14.1 % (11.5-14.0); SEGMENTED NEUTROPHILS % (AUTO) 45.6 % (42-78); TOTAL CELLS COUNTED % (AUTO) 100 %; WHITE BLOOD COUNT 4.9 10^3/uL (4.0-10.5)
[2018-06-27 15:53] LABS: ALANINE AMINOTRANSFERASE 21 U/L (9-52); ALKALINE PHOSPHATASE 89 U/L (38-126); ANION GAP 14 (5-19); ASPARTATE AMINO TRANSFERASE 31 U/L (14-36); BILIRUBIN,DIRECT 0.3 mg/dL (0.0-0.4); BILIRUBIN,TOTAL 0.4 mg/dL (0.2-1.3); BLOOD UREA NITROGEN 18 mg/dL (7-20); CALCIUM 9.6 mg/dL (8.4-10.2); CARBON DIOXIDE 26 mmol/L (22-30); CHLORIDE 99 mmol/L (98-107); GLUCOSE 132 mg/dL (75-110); POTASSIUM 3.7 mmol/L (3.6-5.0); SODIUM 139.3 mmol/L (137-145); TOTAL PROTEIN 7.3 g/dL (6.3-8.2)
[2018-06-27 18:32] VITALS: BP 142/62
== END 2018-06-27 18:32 | disposition home or self-care (01) ==
LOC: ER 14:47
DX: R22.0 Localized swelling, mass and lump, head (principal); Z79.899 Other long term (current) drug therapy; I10 Essential (primary) hypertension; F17.200 Nicotine dependence, unspecified, uncomplicated
CPT/HCPCS: 36415; 80053; 85025; 99283

== ENCOUNTER 2018-10-23 20:47 | Emergency (ER) | payer MEDICARE, OTHER ==
[2018-10-23] MEDS ORDERED: LOPERAMIDE HCL 2 MG CAPSULE PO ONE (20:54)
--- NOTE | 2018-10-23 20:54 | ER Document Report ---
ED General - General Stated Complaint: STOMACH PAIN Time Seen by Provider: 10/23/18 20:51 Notes: Patient is a 78-year-old female with a past surgical history of a cholec ystectomy and hysterectomy, chronic medical history of hypertension hypokalemia who presents by EMS after having an episode of abdominal cramping with associated diaphoresis and diarrhea. At time of presentation the patient is completely asymptomatic, immediately states "I feel very embarrassed for being here, I clearly overreacted". The patient states that she was very nervous while having a bowel movement and becoming diaphoretic having read in the past that this could be the sign of a heart attack. This prompted her to contact EMS. She is however very clear to state that at no point did she ever have any chest pain or shortness of breath. Multiple people in the home have been sick with the exact same symptoms of diarrhea and vomiting. She states that when the abdominal pain was present it was a mild, cramping pain but that has completely resolved. TRAVEL OUTSIDE OF THE [place] IN LAST 30 DAYS: No - Related Data Allergies/Adverse Reactions: clarithromycin [Clarithromycin] Allergy (Unknown, Verified 06/27/18 15:14) unsure of reaction clindamycin HCl [From Cleocin] Allergy (Unknown, Verified 06/27/18 15:14) pt states just can't take doxycycline monohydrate [From Vibramycin] Allergy (Unknown, Verified 06/27/18 15:14) unsure of reaction Sulfa (Sulfonamide Antibiotics) Allergy (Unknown, Verified 06/27/18 15:14) brimonidine tartrate [From Alphagan] Allergy (Verified 06/27/18 15:14) Red eyes furosemide [From Lasix] Allergy (Verified 06/27/18 15:14) breaks down NSAIDS (Non-Steroidal Anti-Inflamma Allergy (Verified 06/27/18 15:14) nystatin Allergy (Verified 06/27/18 15:14) timolol [Timolol] Allergy (Verified 06/27/18 15:14) lowers heart rate trimethoprim Allergy (Verified 06/27/18 15:14) erythromycin base [Erythromycin Base] Adverse Reaction (Severe, Verified 06/27/18 15:14) GI upset Penicillins Adverse Reaction (Severe, Verified 06/27/18 15:14) dry mouth,vomiting doxycycline [Doxycycline] Adverse Reaction (Intermediate, Verified 06/27/18 15:14) Nausea Past Medical History - General Information source: Patient - Social History Smoking Status: Never Smoker Frequency of alcohol use: None Drug Abuse: None Lives with: Family Family History: Reviewed & Not Pertinent - Past Medical History Cardiac Medical History: Reports: Hx Heart Attack - unsure when, Hx Hypercholesterolemia, Hx Hypertension - age 63 Denies: Hx Coronary Artery Disease Pulmonary Medical History: Reports: Hx Bronchitis, Hx Pneumonia - 15 yrs ago Denies: Hx Asthma, Hx COPD Neurological Medical History: Denies: Hx Cerebrovascular Accident, Hx Seizures Renal/ Medical History: Denies: Hx Peritoneal Dialysis GI Medical History: Denies: Hx Hepatitis, Hx Hiatal Hernia, Hx Ulcer Musculoskeletal Medical History: Denies Hx Arthritis Psychiatric Medical History: Reports: Hx Depression Infectious Medical History: Denies: Hx Hepatitis Past Surgical History: Reports: Hx Appendectomy, Hx Breast Surgery - cyst removed benign, Hx Cholecystectomy, Hx Hysterectomy, Hx Orthopedic Surgery - right ankle and right hip. Denies: Hx Mastectomy, Hx Open Heart Surgery, Hx Pacemaker - Immunizations Hx Diphtheria, Pertussis, Tetanus Vaccination: No - ~8yrs ago Hx Pneumococcal Vaccination: 10/25/09 Review of Systems - Review of Systems Notes: Constitutional: Negative for fever. HENT: Negative for sore throat. Eyes: Negative for visual changes. Cardiovascular: Negative for chest pain. Respiratory: Negative for shortness of breath. Gastrointestinal: Positive for abdominal pain and diarrhea Genitourinary: Negative for dysuria. Musculoskeletal: Negative for back pain. Skin: Negative for rash. Neurological: Negative for headaches, weakness or numbness. 10 point ROS negative except as marked above and in HPI. Physical Exam - Vital signs Vitals: Temp Pulse Resp BP Pulse Ox 97.8 F 67 16 159/51 H 96 10/23/18 20:58 10/23/18 20:58 10/23/18 20:58 10/23/18 20:58 10/23/18 20:58 Interpretation: Normal Notes: PHYSICAL EXAMINATION: GENERAL: Well-appearing, well-nourished and in no acute distress. HEAD: Atraumatic, normocephalic. EYES: Pupils equal round and reactive to light, extraocular movements intact, sclera anicteric, conjunctiva are normal. ENT: nares patent, oropharynx clear without exudates. Moist mucous membranes. NECK: Normal range of motion, supple without lymphadenopathy LUNGS: Breath sounds clear to auscultation bilaterally and equal. No wheezes rales or rhonchi. HEART: Regular rate and rhythm without murmurs ABDOMEN: Soft, nontender, normoactive bowel sounds. No guarding, no rebound. No masses appreciated. EXTREMITIES: Normal range of motion, no pitting or edema. No cyanosis. NEUROLOGICAL: No focal neurological deficits. Moves all extremities spontaneously and on command. PSYCH: Normal mood, normal affect. SKIN: Warm, Dry, normal turgor, no rashes or lesions noted. Course - Re-evaluation Re-evalutation: 10/23/18 20:52 Patient presents with complaints of abdominal cramping prior to having an episode of diarrhea. The patient states that her abdominal pain has now completely resolved after having a bowel movement "I feel ashamed of myself or having called 911 and come now to the emergency department now". She states that she was concerned because while on the toilet she was sweating and felt quite unwell but again notes at this point she has no symptoms of any kind. Multiple people at home have been sick with similar symptoms per her report. Abdominal exam is completely benign. No focal abdominal tenderness. She has no areas of rebound or guarding. Past surgical history of a hysterectomy and cholecystectomy. Very low clinical suspicion for an acute left foot and patho logy given patient's presentation, benign exam, reassuring vitals and history. Will obtain basic laboratories. Will not obtain imaging at this point given the absence of any current pain and what appears to be a history of intestinal spasming prior to having an episode of diarrhea. 10/23/18 22:27 Labs unremarkable with exception of mild hypokalemia patient has continued without any abdominal pain, has tolerated oral intake without any difficulty. Patient's history and symptoms appear to be most consistent with a likely viral or foodborne illness triggering an episode of abdominal cramping and diarrhea that has now remained completely resolved without any intervention. Patient has declined loperamide. At this time will discharge with return precautions and follow-up recommendations. Verbal discharge instructions given a the bedside and opportunity for questions given. Medication warnings reviewed. Patient is in agreement with this plan and has verbalized understanding of return precautions and the need for primary care follow-up in the next 24-72 hours. - Vital Signs Vital signs: Temp Pulse Resp BP Pulse Ox 97.6 F 71 16 159/54 H 96 10/23/18 22:47 10/23/18 22:47 10/23/18 22:47 10/23/18 22:47 10/23/18 22:47 - Laboratory Result Diagrams: 10/23/18 21:38 10/23/18 21:38 Laboratory results interpreted by me: 10/23/18 21:38 Potassium 3.1 L Glucose 121 H Discharge - Discharge Clinical Impression: Abdominal cramping, Hypokalemia Diarrhea Qualifiers: Diarrhea type: presumed infectious Qualified Code(s): R19.7 - Diarrhea, unspecified Condition: Good Disposition: HOME, SELF-CARE Additional Instructions: Your symptoms are likely due to a viral illness or foodborne illness and should resolve in the next several days. Continue to stay hydrated with plenty of solution such as Gatorade or Pedialyte. Please return if you develop severe abdominal pain, develop a fever greater than 100.4 F, began vomiting, pass out, become unable to tolerate any oral fluids for 12 more hours, or any other symptoms that are concerning to you. Your labs today show only mildly low potassium but are otherwise normal. Referrals: ANTHONY AGUILAR MD [Primary Care Provider] - Follow up as needed
[2018-10-23 21:48] LABS: HEMATOCRIT 38.8 % (36.0-47.0); MEAN CORPUSCULAR HEMOGLOBIN 31.3 pg (27.0-33.4); MEAN CORPUSCULAR HGB CONC 33.6 g/dL (32.0-36.0); MEAN CORPUSCULAR VOLUME 93 fl (80-97); PLATELET COUNT 223 10^3/uL (150-450); RED BLOOD COUNT 4.17 10^6/uL (3.72-5.28); RED CELL DISTRIBUTION WIDTH 13.8 % (11.5-14.0); WHITE BLOOD COUNT 6.5 10^3/uL (4.0-10.5)
[2018-10-23 21:57] LABS: ALANINE AMINOTRANSFERASE 14 U/L (9-52); ALKALINE PHOSPHATASE 106 U/L (38-126); ANION GAP 7 (5-19); ASPARTATE AMINO TRANSFERASE 29 U/L (14-36); BILIRUBIN,DIRECT 0.2 mg/dL (0.0-0.4); BILIRUBIN,TOTAL 0.4 mg/dL (0.2-1.3); BLOOD UREA NITROGEN 17 mg/dL (7-20); CALCIUM 9.7 mg/dL (8.4-10.2); CARBON DIOXIDE 30 mmol/L (22-30); CHLORIDE 101 mmol/L (98-107); GLUCOSE 121 mg/dL (75-110); POTASSIUM 3.1 mmol/L (3.6-5.0); SODIUM 138.4 mmol/L (137-145)
[2018-10-23] MEDS ORDERED: POTASSIUM CHLORIDE 20 MEQ/15 ML UDCUP PO ONE (22:29)
[2018-10-23] MEDS ORDERED: MAGNESIUM OXIDE 400 MG TABLET PO ONE (22:29)
[2018-10-23 22:50] VITALS: BP 159/54
== END 2018-10-23 22:51 | disposition home or self-care (01) ==
LOC: ER 20:47
DX: R10.84 Generalized abdominal pain (principal); E87.6 Hypokalemia; R19.7 Diarrhea, unspecified; R61 Generalized hyperhidrosis; I25.2 Old myocardial infarction; E78.00 Pure hypercholesterolemia, unspecified; I10 Essential (primary) hypertension; Z90.49 Acquired absence of other specified parts of digestive tract; Z90.710 Acquired absence of both cervix and uterus; Z88.3 Allergy status to other anti-infective agents; Z88.0 Allergy status to penicillin; Z88.2 Allergy status to sulfonamides
CPT/HCPCS: 99284; 36415; 85027; 80053; A9270

== ENCOUNTER 2019-04-10 14:01 | Emergency (ER) | payer MEDICARE, OTHER | END 2019-04-10 15:20 | disposition left against medical advice (07) | LOC: ER 14:01 | DX: Z53.21 Procedure and treatment not carried out due to patient leaving prior to being seen by health care provider (principal) ==

== ENCOUNTER 2019-12-03 08:54 | Emergency (ER) | payer MEDICARE, OTHER ==
[2019-12-03 09:02] VITALS: BP 178/54
--- NOTE | 2019-12-03 09:28 | ER Document Report ---
HPI - HPI Time Seen by Provider: 12/03/19 09:12 Pain Level: 1 Notes: 79-year-old female patient presented to the emergency department chief complaint of what feels like water behind both of her ears. She denies any fever, nausea, vomiting, chills. Denies any pain in her ears. Denies ever having this happen before. - REPRODUCTIVE Reproductive: DENIES: : Past Medical History - General Information source: Patient - Social History Smoking Status: Never Smoker Frequency of alcohol use: None Drug Abuse: None Family History: Reviewed & Not Pertinent Patient has suicidal ideation: No Patient has homicidal ideation: No - Past Medical History Cardiac Medical History: Reports: Hx Heart Attack - unsure when, Hx Hypercholesterolemia, Hx Hypertension - age 63 Denies: Hx Coronary Artery Disease Pulmonary Medical History: Reports: Hx Bronchitis, Hx Pneumonia - 15 yrs ago Denies: Hx Asthma, Hx COPD Neurological Medical History: Denies: Hx Cerebrovascular Accident, Hx Seizures Renal/ Medical History: Denies: Hx Peritoneal Dialysis GI Medical History: Denies: Hx Hepatitis, Hx Hiatal Hernia, Hx Ulcer Musculoskeletal Medical History: Denies Hx Arthritis Psychiatric Medical History: Reports: Hx Depression Infectious Medical History: Denies: Hx Hepatitis Past Surgical History: Reports: Hx Appendectomy, Hx Breast Surgery - cyst removed benign, Hx Cholecystectomy, Hx Hysterectomy, Hx Orthopedic Surgery - right ankle and right hip. Denies: Hx Mastectomy, Hx Open Heart Surgery, Hx Pacemaker - Immunizations Hx Diphtheria, Pertussis, Tetanus Vaccination: No - ~8yrs ago Hx Pneumococcal Vaccination: 10/25/09 Vertical Provider Document - CONSTITUTIONAL Notes: PHYSICAL EXAMINATION: GENERAL: Well-appearing, well-nourished and in no acute distress. HEAD: Atraumatic, normocephalic. EYES: Pupils equal round extraocular movements intact, conjunctiva are normal. ENT: Nares patent, ERYTHEMA fluid behind bilateral TMs. NECK: Normal range of motion LUNGS: No respiratory distress Musculoskeletal: Normal range of motion NEUROLOGICAL: Normal speech, normal gait. PSYCH: Normal mood, normal affect. SKIN: Warm, Dry, normal turgor, no rashes or lesions noted. - INFECTION CONTROL TRAVEL OUTSIDE OF THE [place] IN LAST 30 DAYS: No Course - Re-evaluation Re-evalutation: Presentation is most consistent with an acute otitis media. Clinical history as well as exam is most consistent with this diagnosis. Based on history and examination do not suspect an acute meningitis, encephalitis, peritonsillar abscess, or retropharyngeal abscess. Child is otherwise well in appearance, no acute distress. Vitals otherwise within normal limits. The patient will be started on antibiotics. At this time will discharge with return precautions and follow-up recommendations. Verbal discharge instructions given a the bedside to the parents and opportunity for questions given. Medication warnings reviewed. Parents are in agreement with this plan and has verbalized understanding of return precautions and the need for primary care follow-up in the next 24-72 hours. - Vital Signs Vital signs: Temp Pulse Resp BP Pulse Ox 97.7 F 68 16 178/54 H 98 12/03/19 09:00 12/03/19 09:00 12/03/19 09:00 12/03/19 09:00 12/03/19 09:00 Discharge - Discharge Clinical Impression: Serous otitis media Qualifiers: Chronicity: unspecified Laterality: unspecified laterality Qualified Code(s): H65.90 - Unspecified nonsuppurative otitis media, unspecified ear Condition: Stable Disposition: HOME, SELF-CARE Additional Instructions: It appears that your discomfort may be coming from fluid behind your ears. The fluid behind 1 of your eardrums appears to be infected. For this reason we will try starting you on an antibiotic. Please keep the follow-up appointment with the ENT doctor. Please continue to use the Flonase as prescribed by your [facility] care doctor. Prescriptions: Cephalexin [Cephalexin 500 MG Tablet] 1 tab PO TID #21 tablet Referrals: ANTHONY AGUILAR MD [Primary Care Provider] - Follow up as needed
== END 2019-12-03 09:30 | disposition home or self-care (01) ==
LOC: ER 08:54
DX: H65.90 Unspecified nonsuppurative otitis media, unspecified ear (principal); I10 Essential (primary) hypertension
CPT/HCPCS: 99282

== ENCOUNTER 2020-09-11 08:16 | Emergency (ER) | payer MEDICARE, OTHER ==
[2020-09-11 08:54] LABS: ABSOLUTE EOSINOPHILS # (AUTO) 0.1 10^3/uL (0.0-0.6); ABSOLUTE LYMPHOCYTES (AUTO) 1.5 10^3/uL (0.5-4.7); ABSOLUTE MONOCYTES (AUTO) 0.7 10^3/uL (0.1-1.4); ABSOLUTE NEUT (AUTO) 2.9 10^3/uL (1.7-8.2); BASOPHILS % (AUTO) 0.3 % (0-2); EOSINOPHILS % (AUTO) 1.3 % (0-6); HEMATOCRIT 38.3 % (36.0-47.0); HEMOGLOBIN 12.8 g/dL (12.0-15.5); LYMPHOCYTES % (AUTO) 28.7 % (13-45); MEAN CORPUSCULAR HEMOGLOBIN 31.5 pg (27.0-33.4); MEAN CORPUSCULAR HGB CONC 33.4 g/dL (32.0-36.0); MEAN CORPUSCULAR VOLUME 94 fl (80-97); MONOCYTES % (AUTO) 12.8 % (3-13); PLATELET COUNT 193 10^3/uL (150-450); RED BLOOD COUNT 4.06 10^6/uL (3.72-5.28); RED CELL DISTRIBUTION WIDTH 13.9 % (11.5-14.0); SEGMENTED NEUTROPHILS % (AUTO) 56.9 % (42-78); TOTAL CELLS COUNTED % (AUTO) 100 %; WHITE BLOOD COUNT 5.1 10^3/uL (4.0-10.5)
[2020-09-11 09:08] LABS: ALBUMIN 4.1 g/dL (3.5-5.0); ALKALINE PHOSPHATASE 97 U/L (38-126); ANION GAP 10 (5-19); ASPARTATE AMINO TRANSFERASE 35 U/L (14-36); BILIRUBIN,TOTAL 0.7 mg/dL (0.2-1.3); BLOOD UREA NITROGEN 12 mg/dL (7-20); CALCIUM 9.9 mg/dL (8.4-10.2); CARBON DIOXIDE 28 mmol/L (22-30); CHLORIDE 101 mmol/L (98-107); CREATINE KINASE 154 U/L (30-135); GLUCOSE 127 mg/dL (75-110); POTASSIUM 3.8 mmol/L (3.6-5.0); TOTAL PROTEIN 7.1 g/dL (6.3-8.2)
[2020-09-11 09:19] LABS: CREATINE KINASE MB 1.56 ng/mL (<4.55); TROPONIN I 0.014 ng/mL
--- NOTE | 2020-09-11 09:28 | ER Document Report ---
ED General - General Chief Complaint: Weakness Stated Complaint: WEAKNESS Time Seen by Provider: 09/11/20 08:19 Primary Care Provider: ANTHONY AGUILAR MD [Primary Care Provider] - Follow up as needed Mode of Arrival: Medic Information source: Patient, Relative - daughter in law TRAVEL OUTSIDE OF THE [place] IN LAST 30 DAYS: No - HPI Notes: Patient is brought in by ambulance for foot pain. History was obtained both from patient and from [id number] as patient is somewhat of a poor historian. Patient apparently was having diarrhea yesterday and had some of the bowel movement land on the floor of the bathroom. She then slipped on this and apparently injured both feet. [id number] states since that time she has been unable to walk or bear weight. They state that they try to get the patient to the car to bring her to the doctor which patient was unable to do this. Patient states that her feet do hurt but she feels that they have been hurting the same as they do at baseline. She states they do not appear to hurt any worse than before she fell. She denies any knee or hip pain. No abdominal pain. No vomiting. No fevers. The pain in her feet appear to be constant. Is been moderate. No known radiation of this pain. It does appear to be worse with movement or weightbearing and better with rest. - Related Data Allergies/Adverse Reactions: clarithromycin [Clarithromycin] Allergy (Unknown, Verified 04/10/19 14:14) unsure of reaction clindamycin HCl [From Cleocin] Allergy (Unknown, Verified 04/10/19 14:14) pt states just can't take doxycycline monohydrate [From Vibramycin] Allergy (Unknown, Verified 04/10/19 14:14) unsure of reaction Sulfa (Sulfonamide Antibiotics) Allergy (Unknown, Verified 04/10/19 14:14) brimonidine tartrate [From Alphagan] Allergy (Verified 04/10/19 14:14) Red eyes furosemide [From Lasix] Allergy (Verified 04/10/19 14:14) breaks down NSAIDS (Non-Steroidal Anti-Inflamma Allergy (Verified 04/10/19 14:14) nystatin Allergy (Verified 04/10/19 14:14) timolol [Timolol] Allergy (Verified 04/10/19 14:14) lowers heart rate trimethoprim Allergy (Verified 04/10/19 14:14) erythromycin base [Erythromycin Base] Adverse Reaction (Severe, Verified 04/10/19 14:14) GI upset Penicillins Adverse Reaction (Severe, Verified 04/10/19 14:14) dry mouth,vomiting doxycycline [Doxycycline] Adverse Reaction (Intermediate, Verified 04/10/19 14:14) Nausea Home Medications: xanax, nitro, K+, simvastatin, escitalopram, hydralazine, alprazolam, isosorbide. Past Medical History - General Information source: Patient - Social History Smoking Status: Never Smoker Frequency of alcohol use: None Drug Abuse: None Family History: Reviewed & Not Pertinent - Past Medical History Cardiac Medical History: Reports: Hx Heart Attack - unsure when, Hx Hypercholesterolemia, Hx Hypertension - age 63 Denies: Hx Coronary Artery Disease Pulmonary Medical History: Reports: Hx Bronchitis, Hx Pneumonia - 15 yrs ago Denies: Hx Asthma, Hx COPD Neurological Medical History: Denies: Hx Cerebrovascular Accident, Hx Seizures Renal/ Medical History: Denies: Hx Peritoneal Dialysis GI Medical History: Denies: Hx Hepatitis, Hx Hiatal Hernia, Hx Ulcer Musculoskeletal Medical History: Denies Hx Arthritis Psychiatric Medical History: Reports: Hx Depression Infectious Medical History: Denies: Hx Hepatitis Past Surgical History: Reports: Hx Appendectomy, Hx Breast Surgery - cyst removed benign, Hx Cholecystectomy, Hx Hysterectomy, Hx Orthopedic Surgery - right ankle and right hip. Denies: Hx Mastectomy, Hx Open Heart Surgery, Hx Pacemaker - Immunizations Hx Diphtheria, Pertussis, Tetanus Vaccination: No - ~8yrs ago Hx Pneumococcal Vaccination: 10/25/09 Review of Systems - Review of Systems Constitutional: denies: Chills, Fever Cardiovascular: denies: Chest pain, Palpitations Respiratory: denies: Cough, Short of breath -: Yes All other systems reviewed and negative Physical Exam - Vital signs Vitals: Resp Pulse Ox 17 99 09/11/20 08:22 09/11/20 08:22 Interpretation: Normal - General General appearance: Appears well, Alert - HEENT Head: Normocephalic, Atraumatic Eyes: Normal Pupils: PERRL - Respiratory Respiratory status: No respiratory distress Chest status: Nontender Breath sounds: Normal Chest palpation: Normal - Cardiovascular Rhythm: Regular Heart sounds: Normal auscultation Murmur: No - Abdominal Inspection: Normal Distension: No distension Bowel sounds: Normal Tenderness: Nontender Organomegaly: No organomegaly - Back Back: Normal, Nontender - Extremities General upper extremity: Normal inspection, Nontender, Normal color, Normal ROM, Normal temperature General lower extremity: Normal temperature, Other - Patient has some swelling and ecchymosis to both feet bilaterally. Both feet are diffusely mildly tender to palpation. Bilateral ankles have an unremarkable exam. - Neurological Neuro grossly intact: Yes Cognition: Normal Orientation: AAOx4 [place] Coma Scale Eye Opening: Spontaneous [place] Coma Scale Verbal: Oriented [place] Coma Scale Motor: Obeys Commands [place] Coma Scale Total: 15 Speech: Normal Motor strength normal: LUE, RUE, LLE, RLE Sensory: Normal - Psychological Associated symptoms: Normal affect, Normal mood - Skin Skin Temperature: Warm Skin Moisture: Dry Skin Color: Ecchymosis - bilat feet Course - Re-evaluation Re-evalutation: 09/11/20 10:53 Patient was brought by ambulance secondary to inability to ambulate. This inability seems to be secondary to foot pain after a fall yesterday. X-ray showed no evidence of acute injury. We were able to ambulate patient here around the room using a walker. Her gait does seem slightly unsteady and this will be reviewed with the family. I do not believe the patient would benefit from further hospital evaluation or therapy at this time but that physical therapy should definitely be pursued on an outpatient basis. - Vital Signs Vital signs: Temp Pulse Resp BP Pulse Ox 98.1 F 71 18 129/50 H 91 L 09/11/20 08:28 09/11/20 08:47 09/11/20 10:01 09/11/20 10:01 09/11/20 10:01 - Laboratory Result Diagrams: 09/11/20 08:30 09/11/20 08:30 Laboratory results interpreted by me: 09/11/20 09/11/20 08:30 08:30 Glucose 127 H POC Glucose 124 H Creatine Kinase 154 H - Diagnostic Test Radiology reviewed: Image reviewed, Reports reviewed - EKG Interpretation by Me EKG shows normal: Sinus rhythm Rate: Normal - 64 Rhythm: NSR [place]/QRS: No: Right axis deviation, Left axis deviation Discharge - Discharge Clinical Impression: Unspecified sprain of left foot, initial encounter Right foot sprain Qualifiers: Encounter type: initial encounter Qualified Code(s): S93.601A - Unspecified sprain of right foot, initial encounter Condition: Stable Disposition: HOME, SELF-CARE Instructions: Sprain ([facility]) Additional Instructions: Please discuss physicial therapy with your doctor as soon as possible Referrals: ANTHONY AGUILAR MD [Primary Care Provider] - Follow up tomorrow
--- NOTE | 2020-09-11 09:54 | RADIOLOGY REPORT (SQ) ---
EXAM DESCRIPTION: FOOT BILATERAL 3 VIEWS IMAGES COMPLETED DATE/TIME: 09/11/2020 9:28 am REASON FOR STUDY: fall/pain/bruising COMPARISON: 01/07/2018 NUMBER OF VIEWS: Six views. TECHNIQUE: AP, lateral and oblique radiographic images acquired of the right and left foot. LIMITATIONS: None. FINDINGS: MINERALIZATION: Osteopenia. BONES: No acute fracture or dislocation. No worrisome bone lesions. JOINTS: No effusions. SOFT TISSUES: Dorsal soft tissue swelling is seen bilaterally. OTHER: The patient is status post open reduction, internal fixation of the right tibia and fibula. T here is no evidence of hardware fracture, perihardware lucency or migration. IMPRESSION: No evidence of acute osseous injury. Background of osteopenia and right ankle open redu ction, internal fixation. TECHNICAL DOCUMENTATION: JOB ID: [id number] 2010 [employer]- All Rights Reserved Reading location - IP/workstation name: [email or web address]
--- NOTE | 2020-09-11 10:10 | EKG REPORT ---
SEVERITY:- NORMAL ECG - SINUS RHYTHM : Confirmed by: Lauryn Dumas MD 11-Sep-2020 10:10:13
[2020-09-11 11:33] VITALS: BP 159/63
== END 2020-09-11 11:35 | disposition home or self-care (01) ==
LOC: ER 08:16
DX: S93.601A Unspecified sprain of right foot, initial encounter (principal); S90.32XA Contusion of left foot, initial encounter; S90.31XA Contusion of right foot, initial encounter; W01.0XXA Fall on same level from slipping, tripping and stumbling without subsequent striking against object, initial encounter; R19.7 Diarrhea, unspecified; M85.80 Other specified disorders of bone density and structure, unspecified site; E78.00 Pure hypercholesterolemia, unspecified; I10 Essential (primary) hypertension; F32.9 Major depressive disorder, single episode, unspecified; Z79.899 Other long term (current) drug therapy; Z88.1 Allergy status to other antibiotic agents; Z88.2 Allergy status to sulfonamides; Z88.8 Allergy status to other drugs, medicaments and biological substances; Z88.3 Allergy status to other anti-infective agents; Z88.0 Allergy status to penicillin
CPT/HCPCS: 36415; 80053; 82550; 82553; 82962; 84484; 85025; 93005; 93010; 99285